=== PATIENT | female | born 1950 | race Caucasian/White ===

== ENCOUNTER 2019-09-25 14:15 | Emergency (ER) | payer MEDICARE, OTHER, SELFPAY ==
--- NOTE | 2019-09-25 14:36 | DI.RAD.S_ITS ---
PROCEDURE: XR ANKLE RT MIN 3V INDICATIONS: Fall with pain and swelling to foot and ankle TECHNIQUE: 3 views of the ankle were acquired. COMPARISON: None. FINDINGS: Bones: No fractures or dislocations. Ankle mortise is normally aligned. No suspicious bony lesions. Soft tissues: No tibiotalar joint effusion. Achilles tendon appears normal. Probable distal posterior tibial artery calcifications. IMPRESSION: No evidence acute bony abnormality of the right ankle. If clinical suspicion and/or symptoms persist, further assessment with repeat plain films, or advanced imaging (e.g., CT, MRI, or bone scan) may be helpful for further assessment. Dictated by: Noel Shelby M.D. on 09/25/2019 at 14:01 Approved by: Noel Shelby M.D. on 09/25/2019 at 14:02
--- NOTE | 2019-09-25 14:37 | DI.RAD.S_ITS ---
PROCEDURE: XR FOOT RT MIN 3V INDICATIONS: Fall with pain to right foot TECHNIQUE: 3 views of the foot were acquired. COMPARISON: None. FINDINGS: Bones: No fractures or dislocations. No suspicious bony lesions. Soft tissues: No tibiotalar joint effusion. Achilles tendon appears normal. IMPRESSION: No evidence acute bony abnormality of the right foot Dictated by: Noel Shelby M.D. on 09/25/2019 at 14:02 Approved by: Noel Shelby M.D. on 09/25/2019 at 14:03
[2019-09-25 14:38] VITALS: BP 139/111; PULSE 103; RESP 15; TEMP 36.9; O2SAT 97; BMI 23.6
[2019-09-25] MEDS: HYDROCODONE/ACET 5/325 TABLET 1 TAB PO (16:11)
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
== END 2019-09-25 16:46 | disposition home or self-care (01) ==
PROVIDERS: Emergency Provider Nurse Practitioner Family
DX: M79.671 Pain in right foot (principal); M25.571 Pain in right ankle and joints of right foot; W19.XXXA Unspecified fall, initial encounter
CPT/HCPCS: 29540; 73610; 73630; 99283; 99284

== ENCOUNTER → 2020-10-08 11:52 | Outpatient (CLI) | payer MEDICARE, OTHER, SELFPAY ==
--- NOTE | 2020-10-08 | DI.US.S_ITS ---
PROCEDURE: US ABDOMEN LIMITED INDICATIONS: HISTORY SMOKING; EPIGASTRIC LUMP TECHNIQUE: Real time scanning was performed of the aorta and iliac arteries, with image documentation. COMPARISON: None. FINDINGS: Aorta: Proximal aortic diameter measures 2.5 cm. Mid-aorta measures 1.8 cm. Distal aortic diameter is 1.6 cm. Iliac arteries: Right common iliac artery measures 1.1 cm. Left common iliac artery measures 1 0 cm. IMPRESSION: Mild ectasia of the proximal aorta. 5 year follow-up ultrasound recommended. Dictated by: Mateus THOMPSON Interpreted: Kenya Parikh MD on 10/11/2020 at 14:32 Transcribed by: YESENIA on 10/11/2020 at 14:32 Approved by: Kenya Parikh M.D. on 10/11/2020 at 18:57
== END ==
PROVIDERS: Referring Provider Physician Assistant; Visit Provider Physician Assistant
DX: R19.06 Epigastric swelling, mass or lump (principal); I77.811 Abdominal aortic ectasia; Z87.891 Personal history of nicotine dependence; Z82.49 Family history of ischemic heart disease and other diseases of the circulatory system
CPT/HCPCS: 76705

== ENCOUNTER → 2020-10-30 12:03 | Outpatient (CLI) | payer MEDICARE, OTHER, SELFPAY ==
--- NOTE | 2020-10-30 | DI.US.S_ITS ---
PROCEDURE: US THYROID INDICATIONS: NONTOXIC GOITER TECHNIQUE: Real-time scanning was performed of the thyroid gland, with image documentation. COMPARISON: [facility], , US THYROID, 11/20/2005, 8:37. FINDINGS: Right: Thyroid lobe measures 5.4 x 1.8 x 2.6 cm, and is homogeneous in echotexture. Left: Thyroid lobe measures 5.5 x 2.0 x 2.2 cm, and is homogenous in echotexture. Isthmus: 2.2 mm thick. Nodule number: 1 Location: Left mid to superior Size: Increased at 2.4 x 1.6 x 2.1 cm. Composition: Predominantly solid Echogenicity: Predominantly isoechoic Shape: wider than tall. Margins: Smooth Echogenic foci: Internal punctate echogenic foci Total points: 6 ACR TI-RADS category: Moderately suspicious Nodule number: 2 Location: Left mid Size: Increased at 1.0 x 0.4 x 0.8 cm. Composition: Solid Echogenicity: Hypoechoic Shape: wider than tall. Margins: Smooth Echogenic foci: None Total points: 4 ACR TI-RADS category: Moderately suspicious Nodule number: 3 Location: Left mid Size: Unchanged 0.6 x 0.3 x 0.7 cm. Composition: Solid Echogenicity: Hypoechoic Shape: wider than tall. Margins: Smooth Echogenic foci: Not requested. Total points: 4 ACR TI-RADS category: Moderately suspicious Nodule number: 4 Location: Left inferior Size: Increased at 2.6 x 1.7 x 2.0 cm. Composition: Solid Echogenicity: Predominantly isoechoic Shape: wider than tall. Margins: Small Echogenic foci: None Total points: 3 ACR TI-RADS category: Mildly suspicious Nodule number: 5 Location: Right superior Size: Increased at 3.2 x 1.5 x 2.4 cm. Composition: Solid Echogenicity: Predominantly isoechoic Shape: wider than tall. Margins: Smooth Echogenic foci: Internal punctate echogenic foci Total points: 6 ACR TI-RADS category: Moderately suspicious Nodule number: 6 Location: Right inferior Size: Unchanged 0.8 x 0.7 x 0.8 cm. Composition: Solid Echogenicity: Isoechoic Shape: wider than tall. Margins: Smooth Echogenic foci: Internal punctate echogenic foci Total points: 6 ACR TI-RADS category: Moderately suspicious IMPRESSION: Bilateral thyroid nodules as above. Recommend sonographically directed fine-needle aspiration involving the left #1, and right #5 thyroid nodules. Continued sonographic follow-up also recommended ACR TI-RADS definitions and recommendations: TI-RADS 1 (benign): 0 points. FNA not needed. TI-RADS 2 (not suspicious): 2 points. FNA not needed. TI-RADS 3 (mildly suspicious): 3 points. * FNA if 2.5 cm or larger, follow up if 1.5 cm or larger (at 1, 3, and 5 years). TI-RADS 4 (moderately suspicious): 4-6 points. * FNA if 1.5 cm or larger, follow up if 1 cm or larger (at 1, 2, 3, and 5 years). TI-RADS 5 (highly suspicious): 7 points or more. * FNA if 1 cm or larger, follow up if 0.5 cm or larger (every year for 5 years). Dictated by: Mateus EMANUEL Interpreted: Arun Rondon MD on 10/30/2020 at 13:20 Approved by: Arun Rondon M.D. on 10/30/2020 at 14:59
== END ==
PROVIDERS: PCP Physician Assistant; Referring Provider Physician Assistant; Visit Provider Physician Assistant
DX: E04.2 Nontoxic multinodular goiter (principal); R13.10 Dysphagia, unspecified
CPT/HCPCS: 76536